=== PATIENT | female | born 1995 ===

== ENCOUNTER 2021-08-25 07:14 | Inpatient (IN) ==
[2021-08-25] MEDS ORDERED: ONDANSETRON 4 MG/2 ML VIAL IV PRN ×2 (07:20→11:33)
[2021-08-25] MEDS ORDERED: miSOPROStoL 200 MCG TABLET VAG PRN (07:20)
[2021-08-25] MEDS ORDERED: TRANEXAMIC ACID 1,000 MG in SODIUM CHLORIDE 0.9% 100 ML IV PRN (07:20)
[2021-08-25] MEDS ORDERED: CARBOPROST TROMETHAMINE 250 MCG/ML AMP IM PRN (07:20)
[2021-08-25] MEDS ORDERED: BUTORPHANOL 2 MG/ML VIAL IV PRN (07:20)
[2021-08-25] MEDS ORDERED: METHYLERGONOVINE 0.2 MG/1 ML AMP IM PRN (07:20)
[2021-08-25] MEDS ORDERED: miSOPROStoL 200 MCG TABLET RECTAL PRN (07:20)
[2021-08-25] MEDS ORDERED: MEPERIDINE 50 MG/1 ML VIAL IV PRN (07:20)
[2021-08-25] MEDS ORDERED: OXYTOCIN/LR 20 UNIT/1,000 ML BAG IV ONE ×3 (07:20→11:33)
[2021-08-25] MEDS ORDERED: diphenhydrAMINE 50 MG/1 ML VIAL IV PRN (07:27)
[2021-08-25] MEDS ORDERED: PROMETHAZINE 25 MG/1 ML VIAL IM PRN (07:27)
[2021-08-25] MEDS ORDERED: NALOXONE 0.4 MG/ML VIAL IV PRN (07:27)
[2021-08-25] MEDS ORDERED: ePHEDrine 50 MG/ML VIAL IV PRN (07:27)
[2021-08-25] MEDS ORDERED: hydrOXYzine HCL 25 MG/1 ML VIAL IM PRN (07:27)
[2021-08-25] MEDS ORDERED: FAMOTIDINE 20 MG/2 ML VIAL IV ONE (07:27)
[2021-08-25] MEDS ORDERED: LACTATED RINGERS 1,000 ML IV ONE (07:27)
[2021-08-25] MEDS ORDERED: CITRIC ACID/SODIUM CITRATE 30 ML UDCUP ONE (07:27)
[2021-08-25] MEDS ORDERED: CITRIC ACID/SODIUM CITRATE 30 ML UDCUP PO ONE (07:27)
[2021-08-25] MEDS ORDERED: fentaNYL 2 MCG/ROPIV 0.2% EPID 100 ML EPIDURAL SCH (07:30)
[2021-08-25] MEDS ORDERED: OXYTOCIN/LR 20 UNIT/1,000 ML BAG IV SCH (07:30)
[2021-08-25] MEDS ORDERED: LACTATED RINGERS 1,000 ML IV SCH (07:30)
[2021-08-25] MEDS ORDERED: SODIUM CHLORIDE 0.9% 0 ML IV ONE (07:31)
[2021-08-25] MEDS ORDERED: TRANEXAMIC ACID 1,000 MG/10 ML VIAL ONE (07:31)
[2021-08-25] MEDS ORDERED: miSOPROStoL 200 MCG TABLET ONE (07:31)
[2021-08-25] MEDS ORDERED: CARBOPROST TROMETHAMINE 250 MCG/ML AMP IM ONE (07:32)
[2021-08-25] MEDS ORDERED: METHYLERGONOVINE 0.2 MG/1 ML AMP ONE (07:32)
[2021-08-25 07:40] LABS: Basophils % 0.3 % (0.0-0.8); Eosinophils # 0.1 10*3/uL (0.0-0.87); Eosinophils % 0.4 % (0.00-10.9); Hematocrit 38.7 VOL% (35.7-47.0); Hemoglobin 13.1 GM/DL (12.0-16.0); Immature Granulocytes % 0.7 %; Lymphocytes # 5.5 10*3/uL (1.4-4.0); Lymphocytes % 36.2 % (21.3-54.2); Mean Corpuscular HGB Conc 33.9 GM/DL (32-36); Mean Corpuscular Volume 90.4 FL (87-102); Mean Platelet Volume 11.8 FL (9.6-12.0); Monocytes % 6.1 % (1.7-12.7); Neutrophils % 56.3 % (38.7-73.9); Platelet Count 253 T/CUMM (130-400); Red Blood Count 4.28 MC/CUMM (3.8-5.5); Red Cell Distribution Width 13.3 % (9.3-17.3); White Blood Count 15.1 T/CUMM (4-12)
[2021-08-25 08:11] LABS: Alanine Aminotransferase 19 U/L (13-56); Albumin 2.5 G/DL (3.4-5.0); Alkaline Phosphatase 232 U/L (45-117); Aspartate Amino Transferase 25 U/L (0-37); Bilirubin,Total < 0.39 MG/DL (0.20-1.00); Blood Urea Nitrogen 7 MG/DL (7-18); Carbon Dioxide 23 MMOL/L (21-32); Estimated Glom Filtration Rate 93 ML/MIN; Glucose 91 MG/DL (74-106); Osmolality,Calculated 270.8 MOS/KG (273-304); Potassium 4.2 MMOL/L (3.5-5.1); Sodium 137 MMOL/L (136-145); Total Protein 7.2 G/DL (6.4-8.2)
[2021-08-25] MEDS ORDERED: LIDOCAINE 1% 50 ML VIAL ONE (08:14)
[2021-08-25 09:49] LABS: Mucus,Urine Occasional /LPF (Occasional); RBC,Urine 89 /HPF (0-4); Squamous Epithelial Cell,Urine Occasional /HPF (0-10)
[2021-08-25 09:51] LABS: Bilirubin,Urine Small mg/dL (Negative); Blood, Urine Moderate mg/dL (Negative); Glucose,Urine (UA) Negative (Negative); Ketones,Urine 15 mg/dL (Negative); Nitrite,Urine Negative (Negative); Protein,Urine Negative (Negative); Urine Appearance Clear (Clear); Urine Color Yellow (Yellow); Urine Specific Gravity 1.025 (1.001-1.035); Urine pH 6.5 (4.5-8.0)
[2021-08-25 09:52] LABS: Urine Urobilinogen 0.2 eU/dL (<2.0)
[2021-08-25 10:02] LABS: Hepatitis B Surface Ag Quant 0.19 Index; Hepatitis B Surface Ag Result Non-Reactive (NonReactive)
[2021-08-25] MEDS ORDERED: HYDROCORTISONE 2.5% RECTAL CREAM 30 GM TUBE TOP PRN (11:33)
[2021-08-25] MEDS ORDERED: BENZOCAINE 20%/MENTHOL 0.5% SPRAY 56 GM CAN TOP PRN (11:33)
[2021-08-25] MEDS ORDERED: MEASLES/MUMPS/RUBELLA VACCINE 0.5 ML VIAL SUBCUT ONE (11:33)
[2021-08-25] MEDS ORDERED: LANOLIN 50% CREAM 0.3 OZ TUBE TOP PRN (11:33)
[2021-08-25] MEDS ORDERED: DIPH/TET/ACEL PERT BOOSTER VACCINE 0.5 ML VIAL IM ONE (11:33)
[2021-08-25] MEDS ORDERED: ACETAMINOPHEN 325 MG TABLET PO PRN (11:33)
[2021-08-25] MEDS ORDERED: BISACODYL 10 MG SUPP RECTAL PRN (11:33)
[2021-08-25] MEDS ORDERED: RHO(D) IMMUNE GLOBULIN 300 MCG SYRINGE IM ONE (11:33)
[2021-08-25] MEDS ORDERED: oxyCODONE/ACETAMINOPHEN 5-325 MG TABLET PO PRN (11:33)
[2021-08-25] MEDS ORDERED: WITCH HAZEL PADS 100/JAR TOP PRN (11:33)
[2021-08-25 11:38] LABS: Cord Arterial Blood HCO3 22.5 MMOL/L
[2021-08-25 11:40] LABS: Cord Venous Blood HCO3 23.1 MMOL/L; Cord Venous Blood PCO2 48.5 MMHG; Cord Venous Blood PO2 25.8
[2021-08-25] MEDS: oxyCODONE/ACETAMINOPHEN 5-325 MG TABLET PO PRN (21:03)
[2021-08-25] MEDS: IBUPROFEN 800 MG TABLET PO PRN (21:03)
[2021-08-25] MEDS: DOCUSATE SODIUM 100 MG CAPSULE PO SCH (21:03)
[2021-08-25] MEDS ORDERED: MAGNESIUM HYDROXIDE SUSP 30 ML UDCUP PO PRN (23:15)
[2021-08-26] MEDS: IBUPROFEN 800 MG TABLET PO PRN ×2 (04:21→19:17)
[2021-08-26] MEDS: oxyCODONE/ACETAMINOPHEN 5-325 MG TABLET PO PRN (04:37)
[2021-08-26 05:45] LABS: Basophils # 0.1 10*3/uL (0.0-0.2); Basophils % 0.4 % (0.0-0.8); Eosinophils # 0.1 10*3/uL (0.0-0.87); Eosinophils % 0.4 % (0.00-10.9); Hematocrit 33.8 VOL% (35.7-47.0); Hemoglobin 11.2 GM/DL (12.0-16.0); Immature Granulocytes % 0.7 %; Immature Granulocytes Absolute 0.09 #; Lymphocytes # 3.7 10*3/uL (1.4-4.0); Lymphocytes % 26.5 % (21.3-54.2); Mean Corpuscular HGB Conc 33.1 GM/DL (32-36); Mean Corpuscular Volume 92.6 FL (87-102); Mean Platelet Volume 11.9 FL (9.6-12.0); Monocytes % 6.9 % (1.7-12.7); Neutrophils % 65.1 % (38.7-73.9); Platelet Count 208 T/CUMM (130-400); Red Blood Count 3.65 MC/CUMM (3.8-5.5); Red Cell Distribution Width 13.7 % (9.3-17.3); White Blood Count 13.8 T/CUMM (4-12)
[2021-08-26] MEDS: DOCUSATE SODIUM 100 MG CAPSULE PO SCH ×3 (09:30→22:26)
[2021-08-27] MEDS: DOCUSATE SODIUM 100 MG CAPSULE PO SCH (09:25)
[2021-08-27 11:50] VITALS: BP 131/76
== END 2021-08-27 14:05 | disposition home or self-care (01) | DRG 807 ==
LOC: N.LDOUT 07:14 → N.LD 07:17 → N.OB 14:50
PROVIDERS: ADMIT Obstetrics & Gynecology; ATTEND Obstetrics & Gynecology